=== PATIENT | male | born 1940 | race Caucasian/White ===

== ENCOUNTER → 2023-10-13 08:54 | Day surgery (SDC) | payer OTHER, SELFPAY ==
[2023-10-13 09:48] VITALS: BMI 25.9
[2023-10-13] MEDS: ELIQUIS 5 MG PO (11:56)
--- NOTE | 2023-10-13 12:14 | ITS.CL.CARDI ---
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
Cardioversion
Procedure Report:
Procedure: LOLA-guided electrical cardioversion
Pre-operative diagnosis: Persistent atrial fibrillation
Post-operative diagnosis: Persistent atrial fibrillation status post DC cardioversion to sinus rhythm
Anesthesia: MAC
Attending Physician: Giovany Byrd MD
Procedure Description: The patient was brought to the electrophysiology laboratory in the fasting state. Informed consent was obtained from the patient prior to the start of the procedure. Adherence to anticoagulation was confirmed. Electrodes were
placed on the patient and connected to an external defibrillator. Monitoring of blood pressure, ECG tracings, and pulse oximetry was initiated. The pads were applied to the patient in the anterior and posterior positions. The patient was sedated by
the anesthesiologist. A LOLA (reported separately) was performed prior to the cardioversion. No left atrial or left atrial appendage thrombus was seen. After the LOLA probe was removed, 200 joule and subsequent 360 joule biphasic synchronized shocks
delivered to the patient under MAC anesthesia. Sinus rhythm was successfully restored. The patient recovered uneventfully from MAC anesthesia. There were no immediate post-procedure complications. The patient left the lab in good condition. The
attending physician was present throughout the entire procedure.
Impression: Successful LOLA-guided direct current cardioversion with church of sinus rhythm after 200 joule and subsequent 360 joule biphasic synchronized shock.
== END ==
LOC: CATH 08:54
PROVIDERS: ATTENDING PHYSICIAN Internal Medicine Cardiovascular Disease; FAMILY PHYSICIAN Family Medicine; OTHER PHYSICIAN Internal Medicine Cardiovascular Disease
DX: I48.19 Other persistent atrial fibrillation (principal); I08.3 Combined rheumatic disorders of mitral, aortic and tricuspid valves; I48.92 Unspecified atrial flutter; I47.19 Other supraventricular tachycardia; I25.10 Atherosclerotic heart disease of native coronary artery without angina pectoris; I11.0 Hypertensive heart disease with heart failure; I50.22 Chronic systolic (congestive) heart failure; E78.5 Hyperlipidemia, unspecified; K21.9 Gastro-esophageal reflux disease without esophagitis; Z85.46 Personal history of malignant neoplasm of prostate; Z87.891 Personal history of nicotine dependence; Z79.01 Long term (current) use of anticoagulants
CPT/HCPCS: 93312; 93320; 93325; 92960; 93005

== ENCOUNTER 2023-10-18 15:10 | Emergency (ER) | payer OTHER, SELFPAY ==
[2023-10-18] VITALS (10 sets, daily range): BP systolic 89–125; BP diastolic 63–89; PULSE 85–101; BMI 25.5
--- NOTE | 2023-10-18 15:32 | EDRN ---
Yarely RAMIREZ in room w/ pt at this time.
--- NOTE | 2023-10-18 15:43 | ED.GENMED ---
History of Present Illness
General
Chief Complaint: Breathing Problem
Source: patient
Exam Limitations: none
Time Seen by Provider: 10/18/23 15:29
Travel History
Have you had any contact with someone who has COVID-19?: No
Do you have any symptoms of coronavirus? Fever > 100 degrees, chills, cough, shortness of breath, sore throat, loss of taste or smell, muscle aches, or headache?: No
History of Present Illness
History of Present Illness:
82-year-old male presents for evaluation of shortness of breath and lightheadedness without associated chest pain. He had a LOLA cardioversion performed last week for persistent atrial fibrillation. He is anticoagulated. He states he is having
trouble walking around the house because of the shortness of breath. Denies any weight gain or leg swelling. He feels as though he may be in atrial fibrillation. No fever. No cough. No other complaints at this time
Past History
Past History
ED Past Medical History: Arrthythmia, CAD, Cancer, CHF, HTN and Other (Cardiac amyloidosis)
ED Past Surgical History: Appendectomy, Bowel resection (Bowel resection with colostomy 2017 due to Diverticulitis) and Orthopedic (L knee replacement)
Social History
Tobacco: Former smoker
Alcohol: None
Drug: None
Personal:
Living: with family
Employment: Retired (from [email or web address])
Family History
Family History: Other (n/c)
Phy Exam
Physical Exam
Physical Exam:
General: Well-appearing male no acute respiratory distress
HEENT: Normocephalic atraumatic
Heart: Regular rate and rhythm no murmurs
Lungs: Clear no obvious wheeze or Rales
Abdomen is soft nontender colostomy noted normal bowel sounds none
Extremities: No cyanosis or edema
Skin: Warm no rash
Scores
Heart Failure Risk
Heart Failure Risk Score: Not Applicable
Course
Orders/Labs/Results
Orders:
Orders
10/18/23 15:16
Electrocardiogram (*1) Urgent
Reason for Study: Atrial Fibrillation
EKG- Treatment ONCE
10/18/23 15:40
CR Chest - 2 Views Urgent
Comment:
Reason For Exam: sob
10/18/23 15:59
Basic Metabolic Panel Urgent
Complete Blood Count/With Diff Urgent
NT-proBNP Urgent
Troponin I Urgent
10/18/23 16:02
Orthostatic VS- Treatment ONCE
10/18/23 18:[address] Non Medication Order As Directed
Physician Order: Please do ambulatory pulse ox/heart rate.
Above order entered?: Yes
Abnormal Lab Results
10/18/23
15:59
RBC 4.52 L 10^6/uL
(4.70-6.10)
Hgb 10.3 L g/dL
(13.0-18.0)
Hct 33.9 L %
(39.0-52.0)
MCV 75.0 L fL
(80.0-94.0)
MCH 22.8 L pg
(27.0-31.0)
MCHC 30.4 L g/dL
(33.0-37.0)
RDW 19.3 H %
(11.5-14.5)
Absolute Lymphs (auto) 1.0 L 10^3/uL
(1.2-3.4)
Lymphocytes % 17.6 L %
(20.5-51.1)
Chloride 108 H mmol/L
(98-107)
BUN 22 H mg/dl
(9-20)
Glucose 122 H mg/dl
(70-99)
Troponin I 0.047 H* ng/ml
10/18/23 15:59
10/18/23 15:59
Vital Signs
Initial and Last Documented VS:
Initial Vital Signs
Temp Pulse Resp BP Pulse Ox
98.2 F 96 18 101/66 98
10/18/23 15:12 10/18/23 15:12 10/18/23 15:12 10/18/23 15:12 10/18/23 15:12
Last Documented Vital Signs
Temp Pulse Resp BP Pulse Ox
98.2 F 95 16 117/89 96
10/18/23 15:12 10/18/23 19:15 10/18/23 19:15 10/18/23 19:00 10/18/23 19:30
MDM/Problems Addressed
Differential Diagnosis Includes:
Shortness of breath lightheadedness. Question possible arrhythmia anemia electrolyte abnormality versus CHF. I reviewed prior records. He was cardioverted 5 days ago. His ejection fraction on the LOLA was 45 to 50%. Does not appear volume
overloaded. Check for pneumonia on the x-ray. Labs pending
*Critical Care Note
Total Time (30-74mins, 75-104mins- exclusive of procedures): Not Applicable
Update Note
Update Note:
Workup here is stable. Troponin is 0.047. He is typically higher than this. Chest x-ray shows no acute finding. There is chronic disease noted. Patient ambulated throughout the department and vital signs remained stable. Patient's main concern
was that he was in A-fib again however he has been in sinus rhythm his whole time. Patient expresses his desire to go home. 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
ED Attending Note
-
Portions of this chart may have been created with voice recognition software.� Occasional wrong word or��sound alike� substitutions may have occurred due to the inherent limitations of voice recognition software.
Discharge Plan
Departure
Patient Disposition: Home (Routine Discharge)
Date of Disposition: 10/18/23
Time of Disposition: 19:47
Patient with high blood pressure during this ER visit?: No
Discharge Problem:
Acute dyspnea
Instructions: Shortness of Breath (Dyspnea) (DC)
Prescriptions:
No Action
escitalopram oxalate 10 MG tablet
20 mg PO DAILY
dofetilide 250 MCG capsule
250 mcg PO Q12H
lorazepam 0.5 MG tablet
0.5 mg PO BIDPRN PRN (Reason: anxiety)
Vyndamax 61 MG capsule
61 mg PO HS
Eliquis 5 mg Tablet
5 mg PO BID Qty: 60 2RF
pantoprazole 40 mg tablet,delayed release (DR/EC)
40 mg PO DAILY Qty: 30 1RF
Tylenol Extra Strength 500 mg Powder In Packet
500 mg PO HSPRN PRN (Reason: mild pain)
furosemide 20 MG tablet
20 mg PO DAILY Qty: 30 0RF
rosuvastatin 20 mg Tablet
20 mg PO DAILY
cyanocobalamin (vitamin B-12) 1,000 mcg Tablet Extended Release
1,000 mcg PO DAILY
Theragen Tablet
1 tab PO DAILY PRN (Reason: supplement)
cholecalciferol (vitamin D3) 25 mcg (1,000 unit) Tablet,Chewable
25 mcg PO DAILY PRN (Reason: supplement)
melatonin
2 gummy PO HS
Patient Comments:
10/18/2023, pt. unsure of strength.
Referrals:
Henri Kwon MD [Family Provider] -
Activity Restrictions/Additional Instructions:
Ensure plenty of hydration. Continue current medication regimen. Please follow-up closely with your professor of business return if worsening symptoms should arise otherwise
Interventions
Interventions:
*Risk Screen - Suicide Last Done: 10/18/23 15:12
*General Assessment Last Done: 10/18/23 15:12
*Neglect/Abuse Screening Last Done: 10/18/23 15:12
ED- Fall Risk Assessment Last Done: 10/18/23 15:51
*ED COVID-19 Vaccine History Last Done: 10/18/23 15:51
ED- Cardiac Assessment Last Done: 10/18/23 16:03
ED- Pulmonary Assessment Last Done: 10/18/23 16:03
[2023-10-18 16:10] LABS: % Basophils 1.1 % (0-2); % Eosinophils 2.9 % (0-6); % Immature Granulocytes 0.2 % (0-0.5); % Lymphocytes 17.6 % (20.5-51.1); % Monocytes 8.2 % (1.7-9.3); Absolute Basophils 0.1 10^3/uL (0-0.2); Absolute Eosinophils 0.2 10^3/uL (0-0.7); Absolute Monocytes 0.5 10^3/uL (0.1-0.6); Absolute Neutrophils 3.9 10^3/uL (1.4-6.5); Hematocrit 33.9 % (39.0-52.0); Hemoglobin 10.3 g/dL (13.0-18.0); Mean Corp Hgb Conc. 30.4 g/dL (33.0-37.0); Mean Corpuscular Hgb 22.8 pg (27.0-31.0); Nucleated Red Blood Cells % 0 % (-); Platelet Count 275 10^3/uL (130-400); Red Blood Cell Count 4.52 10^6/uL (4.70-6.10); Red Cell Dist. Width 19.3 % (11.5-14.5); White Blood Cell Count 5.6 10^3/uL (4.8-10.8)
[2023-10-18 16:42] LABS: Blood Urea Nitrogen 22 mg/dl (9-20); Calcium 9.9 mg/dl (8.4-10.2); Carbon Dioxide 25 mmol/L (22-30); Chloride 108 mmol/L (98-107); Estimated Creatinine Clearance 56 ml/min; Glucose 122 mg/dl (70-99); Sodium 139 mmol/L (135-145); eGFR > 60.00
[2023-10-18 16:44] LABS: NT-proBNP 1430 pg/ml; Troponin I 0.047 ng/ml
--- NOTE | 2023-10-18 19:34 | EDRN ---
Pt ambulated with handheld assist around nurses station without difficulty. Pt SpO2 stayed 95% RA and above. HR between 92-95. Pt states he feels more SOB than in the past but states he is capable of walking further. Denied dizziness.
== END 2023-10-18 19:57 | disposition home or self-care (01) ==
LOC: EMR 15:10
PROVIDERS: Physician Assistant; EMERGENCY PHYSICIAN Emergency Medicine; FAMILY PHYSICIAN Family Medicine
DX: R06.00 Dyspnea, unspecified (principal); I48.19 Other persistent atrial fibrillation; Z87.891 Personal history of nicotine dependence
CPT/HCPCS: 99285; 71046; 80048; 83880; 84484; 85025; 93005

== ENCOUNTER 2023-10-28 08:06 | Day surgery (SDC) | payer OTHER, SELFPAY ==
[2023-10-28] VITALS (31 sets, daily range): BP systolic 86–156; BP diastolic 55–134; BMI 25.3
[2023-10-28 13:05] LABS: ACT-LR - POC 289 Seconds (116-155)
--- NOTE | 2023-10-28 13:49 | ITS.CL.ABL ---
Motor Setter - Ablation
Ablation
Procedure Report:
AFIB ablation:
Mr. Sukh Gil is a very pleasant 82 yr old gentleman with h/o persistent AF s/p failed Tikosyn, AF ablation on 08/12/2023 that included pulmonary veins isolation, roof line and posterior wall isolation ablation, mitral flutter with anterior line,
biatrial flutter, AT from SVC and AT from QUINCY and roof junction has gone into recurrent atrial tachycardia / flutter and presented today to the EP lab for atrial tachycardia/ flutter ablation.
Date of Procedure:
10/28/2023
Indications:
Recurrent atrial flutter / Atrial tachycardia
Pre-Operative Diagnosis:
Atrial flutter / Atrial tachycardia
Post-Operative Diagnosis:
Atrial flutter / Atrial tachycardia
Procedure Performed:
Typical atrial flutter ablation with CTI line formation
Rohit terminalis lateral wall right atrial flutter ablation.
Focal atrial tachycardia at the floor of the LA
Atypical atrial flutter around the left atrial appendage.
Focal atrial tachycardia at the roof of the QUINCY
Mitral flutter with anterior line formation
Trans-septal uncture
Intracardiac ECHO cardiography
Performing Physician:
Aide Meléndez MD
Assistants:
EP staff
Anesthesia:
See anesthesia records
Detailed Description of the Procedure:
Written informed consent was obtained from the patient after a full explanation of the risks and benefits of the procedure including the risks of sedation and anesthesia.
The patient was brought to the electrophysiology laboratory in stable condition in fasting state. Continuous electrocardiographic and hemodynamic monitoring was initiated.
The initial rhythm was atrial flutter.
Time out:
The procedure site was meticulously prepared with surgical scrub and allowed to dry with no pooling. Sterile draping was applied to cover the procedure site. The image intensifier was draped with sterile bag and positioned over the patient.
Prior to the start of the procedure a surgical pause was performed with in agreement from anesthesia, EP staff with double identifier and explanation of the procedure, plan and site of the procedure stated with allergies and medications and
pertinent labs reviewed.
After infusion of local anesthetic, vascular access was obtained under ultrasound guidance and sheaths were placed over guide wire as detailed below.
Sheaths:
��������������� Agilis sheath in right femoral vein upgraded from 8Fr in right femoral vein
��������������� 9Fr in right femoral vein
��������������� 7fr in right femoral vein
Catheters:
��������������� ������������� 3.5mm force sensing irrigated Thermocool STSF DF Bidirectional - at locations of HRA, LA, LV and CS.
��������������� ������������� Penta-ray mapping catheter � at locations of RA, LA
��������������� ������������� ICE catheter - at locations of RA, SVC, and RV.
��������������� ������������� Decapolar Bard catheter � at locations of RA and CS
A 7000 units of heparin was given
Electroanatomic mapping of the right atrium:
A J-tipped guidewire was advanced through the 8-Jordanian sheath in the right femoral vein into the superior vena cava under fluoroscopic and ICE guidance. The 8-Jordanian sheath was exchanged for an Agilis sheath which was advanced into the superior vena
cava.
Using the Pentaray catheter advanced through Agilis sheath into the right atrium, an electroanatomic map (EAM) of the right atrium was created using [employer] Carto mapping system.
The tachycardia was bump terminated but was easily inducible.
Ablation # 1: Typical Atrial Flutter Ablation:
Radiofrequency ablation was performed using a 3.5mm, open irrigation, force-sensing bidirectional ablation catheter (Thermocool STSF) in the cavotricuspid isthmus from the tricuspid annulus to the IVC ridge. All the ablation lesions were guided by
the [facility] SURPOINT module with the CTI lesions were limited to 40-45 [place]ginbotham for SURPOINT lesion index goal of 450.
��������������� -Bidirectional block was confirmed across the CTI line with differential pacing.
��������������� -Double potentials were spaced greater than 158 msec apart.
��������������� -The conduction time across the CTI line from proximal CS pacing was 231 msec.
��������������� -EAM of the right atrium was obtained with coronary sinus pacing and showed a line of block at the CTI.
��������������� -The time interval just lateral to the ablation lesions was 231 msec and the lateral wall was 112 msec
��������������� - All these maneuvers confirmed the block at the CTI line.
- Post ablation HV interval was unchanged at 45msec
Ablation # 2:Lateral wall right atrial flutter:
Patient was again induced and easily inducible tachycardia noted.� The tachycardia was 321 ms and appears to be right atrial in origin.
The entrainment from CTI was done but it was outt.� Floor of the right atrium was also out of the tachycardia.� The SVC and Rohit junction was close to the circuit.
A series of ablations were placed at the rohit terminalis connecting it to SVC and IVC. The tachycardia slowed and terminated into sinus rhythm.
Another attempt of induction resulted in another tachycardia which appears to be coming from the left atrium based on mapping, and CS activation. Decision was made to proceed with transseptal puncture and mapped left atrium
Intracardiac ECHO:
An 8-Jordanian AcuNav intracardiac ECHO (ICE) probe was advanced through the 9-Jordanian sheath in the right femoral vein into the right atrium under fluoroscopic and ICE ultrasound image guidance and a baseline ECHO study was performed. The left atrial
size was dilated. There was trace tricuspid regurgitation. There was mild mitral regurgitation. The aortic valve was grossly normal. There was normal left ventricular size and function. There is trace pericardial effusion. All the four veins were
identified and has good flow identified. There was dense spontaneous contrast noted at the mouth of the QUINCY. No definite clot seen.�
During the procedure, ICE was used for monitoring of complications, guidance of trans-septal puncture, monitor the catheter position and tracking ablation lesions. No change in the pericardial space noted throughout the procedure.
Trans-septal Puncture:
Heparin was initiated and infused to maintain appropriate ACT. A J-tipped guidewire was advanced through the 8-Jordanian sheath in the right femoral vein into the superior vena cava under fluoroscopic and ICE guidance. The 8-Jordanian sheath was exchanged
for an Agilis sheath which was advanced into the superior vena cava. A BRK transseptal needle was advanced until the tip was slightly behind the tip of the dilator inside the Agilis sheath. The apparatus was withdrawn until it was in contact with
the fossa ovalis. The position was adjusted based on fluoroscopy and ultrasound images from ICE. Under fluoroscopic, hemodynamic and ICE ultrasound guidance, left atrium was cannulated by advancing the needle. Once atrial septum was cannulated, the
needle was pulled back and a BMW guide wire was advanced through the needle into the left atrium. The guide wire was advanced into the left superior pulmonary vein. Both the sheath and the dilator was advanced into the left atrium. The dilator with
the needle was withdrawn. Blood was aspirated from the Agilis sheath and arterial blood confirmed. The sheath was flushed. Saline injection noted into the left atrium on ICE. The mapping catheter was advanced in the Agilis sheath into the left
pulmonary vein. Left atrial pressure was measured and elevated V wave noted likely showing at least moderate mitral regurgitation.
3D Electroanatomic Mapping:
Using the Pentaray catheter advanced through Agilis sheath into the left atrium, an electroanatomic map (EAM) of the left atrium was created using Carto mapping system. The map was used for localization of catheter position and tacking of ablation
lesions.
The EAM of the left atrium showed 4 pulmonary veins with all 4 veins electrically isolated from the body the LA. The left atrial posterior wall was also completely silent consistent with her previous ablation. No sign of reconnections noted.
It showed extensive scar on the posterior and anterior wall of the LA with only occasional area of atrial electrical activity. The LA was dilated in size.
Ablation #3: Left atrial floor focal tachycardia ablation:
Using the Carto finder software, the tachycardia was mapped. This tachycardia was appears to be focal tachycardia coming from the floor of the left atrium. Using ablation catheter a series of ablations were placed at the origin of the tachycardia.
Tachycardia terminated and changed into a different tachycardia which was mapped.
Ablation #4: Atypical left atrial flutter involving the left atrial appendage:
Mapping of this tachycardia shows the atypical flutter revolving around the left atrial appendage using the ligament of Jan. The critical isthmus of this appendage appears to be at the fourth of the left atrium at the junction of left atrial
appendage and roof along with left superior pulmonary vein.
A few ablation lesions at that location slowed cycle length and terminated the tachycardia into normal sinus rhythm.
Ablation #5 focal atrial tachycardia at the roof of the QUINCY
CS was paced and the tachycardia was induced. Tachycardia was 521 ms cycle length and was mapped again. It was coming from left atrium and the origin was at the focal point in the roof of left atrial appendage. The location of the origin was
identified inside the left atrial appendage and series of ablations were placed that terminated the tachycardia.
Ablation #6: Mitral flutter with anterior line formation
Further attempt of induction resulted in generation of slow atrial flutter at 610 ms cycle length. This tachycardia was again mapped and appears to be involving the anterior wall of the left atrium likely involving both atria. The series of
ablations were placed connecting the ablated left atrial appendage roof to the left superior pulmonary vein that terminated the tachycardia. Further ablations were placed to create a block of lying on the anterior wall.
The AV nayely functions are deemed within normal range. �The HV was normal with AV conduction
All PVI were rechecked at the end of the case and remained isolated with dissociated and local capture with pacing. Entrance and exit block were demonstrated.
Procedure End
ICE study was done again that showed no epicardial accumulation. No complications noted.
Following the completion of the EP study, catheters were removed. Protamine 40 mg was given at the end of the procedure and ACT was checked repeatedly. The sheaths were removed and hemostasis achieved with VASCADE and manual compression after
acceptable ACT is achieved.
Left atrial Pressure:
Pre-Procedure: Mean LA pressure was 23mmHg
Post-Procedure: Mean LA pressure was 20mmHg
Pre-Procedure: Mean RA pressure was 10mmHg
Estimated Blood loss:
<10 cc
Specimens Removed:
None.
Implants / Devices:
None
Urine output:
None
Packs / Drains/ Tubes:
None
Instrument / Sponge Count Correct:
Yes
Complications of the Procedure:
None
Condition of Patient at Time of Transfer:
Hemodynamically stable with no neurological or vascular compromise.
Summary:
Successful Typical atrial flutter ablation with CTI line formation, Rohit terminalis lateral wall right atrial flutter ablation, Focal atrial tachycardia at the floor of the LA, Atypical atrial flutter around the left atrial appendage, Focal atrial
tachycardia at the roof of the QUINCY, Mitral flutter with anterior line formation
[2023-10-28] MEDS: LASIX IV (13:54)
--- NOTE | 2023-10-28 14:22 | PTCARENOTE ---
Pt due for Lasix IV now. Pt's BP 80's-90's / 50's-60's. Virgie Chavez HEALTH CARE ATTORNEY made aware and states ok to hold until pt's blood pressure comes up. Pt's lungs clear. Pt asymptomatic. Will continue to monitor.
[2023-10-28] MEDS: LASIX 40 MG IV (14:37)
[2023-10-28 15:45] LABS: ACT-LR - POC > 397 Seconds (116-155)
--- NOTE | 2023-10-28 16:26 | PTCARENOTE ---
Received patient from EP lab at 1545 after PCI. Dressing right groin is dry and intact with a strong pedal pulse. Received IV lasix post op, BP 90's/60's, asymptomatic and resting in bed with HOB elevated 30 degrees. Call thomson in reach, at the
bedside.
--- NOTE | 2023-10-28 16:29 | CM ---
Reviewed chart. Met with Mr. Luz to review discharge plans. He states prior to admission he resides with with his spouse in a two story home. He states he has a elevator to get to the second floor where his bedroom/full bathroom is located. He
states prior to admission he ambulates with a rolling walker. He states he has a prescription plan and uses [facility]. The discharge plan is to return home with his spouse when medically stable.
--- NOTE | 2023-10-28 16:33 | CM ---
Reviewed chart. Met with Mr. Luz to review discharge plans. He states prior to admission he resides with his spouse in a two story home. He states he has a elevator to get to bedroom/full bathroom. He states prior to admission he ambulates with
a rolling walker. He states he has a rolling walker at home and no other DME. He states he has a prescription plan and uses [facility]. The discharge plan is to return home with his spouse when medically stable.
--- NOTE | 2023-10-28 16:55 | PTCARENOTE ---
HR irregular, telemetry showing PAF. Dressing right groin is dry and intact, HOB elevated, monitoring VS. Robert Chavez TALEND ETL DEVELOPER of telemetry.
[2023-10-28] MEDS: CRESTOR 20 MG PO (17:52)
[2023-10-28] MEDS: ELIQUIS 5 MG PO (20:01)
[2023-10-28] MEDS: TIKOSYN 250 MCG PO (20:01)
--- NOTE | 2023-10-28 23:27 | PTCARENOTE ---
Assumed care. Patient assisted to the chair, lightheadedness with standing. KERWIN 102/80. Right groin site CDI, left lower abdominal colostomy, no stool in bag. SA with frequent PAC's. HR irregular. Call thomson in reach
[2023-10-28] MEDS: ATIVAN 0.5 MG PO (23:58)
[2023-10-29 03:23] VITALS: BP 103/71
[2023-10-29 04:09] LABS: Hematocrit 34.9 % (39.0-52.0); Hemoglobin 10.8 g/dL (13.0-18.0); Mean Corp Hgb Conc. 30.9 g/dL (33.0-37.0); Mean Corpuscular Hgb 22.9 pg (27.0-31.0); Mean Corpuscular Volume 74.1 fL (80.0-94.0); Mean Platelet Volume 11.2 fL (7.4-10.4); Platelet Count 280 10^3/uL (130-400); Red Blood Cell Count 4.71 10^6/uL (4.70-6.10); Red Cell Dist. Width 19.7 % (11.5-14.5); White Blood Cell Count 6.3 10^3/uL (4.8-10.8)
[2023-10-29 04:56] LABS: Blood Urea Nitrogen 25 mg/dl (9-20); Calcium 10.1 mg/dl (8.4-10.2); Carbon Dioxide 25 mmol/L (22-30); Chloride 104 mmol/L (98-107); Estimated Creatinine Clearance 56 ml/min; Glucose 136 mg/dl (70-99); Magnesium 1.8 mg/dl (1.6-2.3); Potassium 4.6 mmol/L (3.5-5.1); Sodium 140 mmol/L (135-145); eGFR > 60.00
[2023-10-29 06:59] VITALS: BP 125/81
[2023-10-29] MEDS: LEXAPRO 20 MG PO (08:40)
[2023-10-29] MEDS: PROTONIX 40 MG PO (08:40)
[2023-10-29] MEDS: ELIQUIS 5 MG PO (08:40)
[2023-10-29] MEDS: TIKOSYN 250 MCG PO (08:40)
--- NOTE | 2023-10-29 08:50 | W.PN.CARDCBS ---
Addendum entered and electronically signed by Brittani Casper MD 10/29/23 10:03:
I saw and examined the patient.
The SECOND VP HR ASSESSMENT's note was reviewed and I agree with the note.
Comment: He is feeling well. His lungs are cta, rrr no m/r/g, trace edema. He will follow up in the office, will need to allow for some arrhythmia in the next 3 months. Also traditional GDMT is not indiciated given cardiac amyloid.
Original Note:
Today's Communication / Plan
-
post redo ablation
stable for d/c home
Impression / Plan
-
PCP: Henri Kwon MD
CDY: Brittani Cortes MD
Mr. Sukh Gil is a very pleasant 82 yr old gentleman with h/o persistent AF s/p failed Tikosyn, AF ablation on 08/12/2023 that included pulmonary veins isolation, roof line and posterior wall isolation ablation, mitral flutter with anterior line,
biatrial flutter, AT from SVC and AT from QUINCY and roof junction has gone into recurrent atrial tachycardia / flutter and presented today to the EP lab for atrial tachycardia/ flutter ablation.
Impression/Plan:
Recurrent symptomatic Atrial tachycardia - recent ablation 08/12/2023, redo ablation 10/28/23 (see below for details)
tele currently SR but had Afib o/n. OAC Eliquis, continue dofetilide 250mcg bid, PPI daily 2 weeks
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
continue lasix, other meds limited by hypotension
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
HLD
BPH
GERD
CAD/PCI 2020
Prostate CA
OA/LDD
Perforated divertic post colostomy 2016
Prior QUINCY thrombus 2021
Depression
10/28/2023
Procedure Performed:
Typical atrial flutter ablation with CTI line formation
Elissa terminalis lateral wall right atrial flutter ablation.
Focal atrial tachycardia at the floor of the LA
Atypical atrial flutter around the left atrial appendage.
Focal atrial tachycardia at the roof of the QUINCY
Mitral flutter with anterior line formation
Progress Note - Information Security
Subjective
Date of Service: October 29, 2023
no cp, sob
Objective
Labs:
10/29/23 03:38
10/29/23 03:38
Labs
Hgb 10.8 g/dL (13.0-18.0) L 10/29/23 03:38
Hct 34.9 % (39.0-52.0) L 10/29/23 03:38
Plt Count 280 10^3/uL (130-400) 10/29/23 03:38
Sodium 140 mmol/L (135-145) 10/29/23 03:38
Potassium 4.6 mmol/L (3.5-5.1) 10/29/23 03:38
BUN 25 mg/dl (9-20) H 10/29/23 03:38
Creatinine 1.0 mg/dL (0.7-1.3) 10/29/23 03:38
Glucose 136 mg/dl (70-99) H 10/29/23 03:38
Vital Signs and I&O:
Vital Signs
Temp Pulse Resp BP Pulse Ox
97.6 F 90 16 125/81 97
10/29/23 06:57 10/29/23 07:45 10/29/23 06:57 10/29/23 06:59 10/29/23 08:15
Vital Signs
Temp Pulse Resp BP Pulse Ox
97.6 F 90 16 125/81 97
10/29/23 06:57 10/29/23 07:45 10/29/23 06:57 10/29/23 06:59 10/29/23 08:15
Intake & Output
10/27/23 10/28/23 10/29/23 10/30/23
06:59 06:59 06:59 06:59
Intake Total 2039
Output Total 900 / 900
Balance 1140 / 1140
Physical Exam
Physical Exam
NAD, AOX3
S1, S2, RRR
CTAB, non labored
SNTND bsx4
R fem site c/d/i no HT, soft
[2023-10-29] MEDS: PREVNAR 20 0.5 ML IM (10:07)
[2023-10-29 11:42] VITALS: BP 108/80
--- NOTE | 2023-10-29 11:46 | W.DS.TRANS ---
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
-
Discharge Instructions:
Sleep Apnea Risk Intermediate
Discharge Diagnosis/Procedures Atrial tachycardia post ablation
Diet Low Cholesterol,2 Gram Sodium
Driving Restrictions No driving for 24 hours
Instructions:
Stand-Alone Forms: DC Instructions- Cath/EP Lab
Changes to Home Medications: No
Discharge Medications:
DC Medications w/original date entered in zulily
escitalopram oxalate 10 mg tablet 20 mg PO DAILY Mental Health/Anxiety 08/02/17
dofetilide 250 mcg capsule 250 mcg PO Q12H Heart disease/condition 01/23/20
lorazepam 0.5 mg tablet 0.5 mg PO BIDPRN PRN anxiety 01/23/20
tafamidis 61 mg capsule (Vyndamax) 61 mg PO QPM Heart disease/condition 01/23/20
apixaban 5 mg tablet (Eliquis) 5 mg PO BID atrial thrombus #60 tabs 05/29/22
pantoprazole 40 mg tablet,delayed release 40 mg PO DAILY Reflux disease #30 tabs 05/29/22
acetaminophen 500 mg oral powder packet (Tylenol Extra Strength) 500 mg PO HSPRN PRN mild pain 06/18/23
furosemide 20 mg tablet 20 mg PO DAILY Heart Failure #30 tabs 07/21/23
rosuvastatin 20 mg tablet 20 mg PO DAILY 08/12/23
cholecalciferol (vitamin D3) 25 mcg (1,000 unit) chewable tablet 25 mcg PO DAILY PRN supplement 10/18/23
cyanocobalamin (vitamin B-12) 1,000 mcg tablet,extended release 1,000 mcg PO DAILY 10/18/23
melatonin 2 gummy PO HS 10/18/23
multivitamin with minerals-folic acid 200 mcg chewable tablet (Multivitamin Gummies) 1 tab PO QPM 10/28/23
Home Medication Changes
Pending Results: No
--- NOTE | 2023-10-29 13:42 | PTCARENOTE ---
Pt seen by Quita Chavez NP. Pt given prevnar vaccine. Telemetry and IV device removed. Discharge instructions reviewed with pt extensively ( no glasses at hospital) regarding medications and their possible side effects (no new meds), activity and
driving restrictions, wound care, reproting cares adn concerns and follow up appt's. Good understanding taught back to RN. Pt escorted out via wheelchair and pt discharged to home.
== END 2023-10-29 13:46 | disposition home or self-care (01) ==
LOC: CATH 08:06
PROVIDERS: Nurse Practitioner Adult Health; ATTENDING PHYSICIAN Internal Medicine Cardiovascular Disease; FAMILY PHYSICIAN Family Medicine; OTHER PHYSICIAN Internal Medicine Cardiovascular Disease
DX: I48.3 Typical atrial flutter (principal); I48.4 Atypical atrial flutter; I47.19 Other supraventricular tachycardia; Z79.01 Long term (current) use of anticoagulants; E78.5 Hyperlipidemia, unspecified; I50.9 Heart failure, unspecified; I11.0 Hypertensive heart disease with heart failure; E85.82 Wild-type transthyretin-related (ATTR) amyloidosis; N40.0 Benign prostatic hyperplasia without lower urinary tract symptoms; K21.9 Gastro-esophageal reflux disease without esophagitis; I25.10 Atherosclerotic heart disease of native coronary artery without angina pectoris; Z95.5 Presence of coronary angioplasty implant and graft; C61 Malignant neoplasm of prostate; M19.90 Unspecified osteoarthritis, unspecified site; F32.A Depression, unspecified
CPT/HCPCS: 93655; C1769; C1894; C1730; C1732; C1766; C1892; C1759; 76937; 80048; 83735; 85027; 85347; 86850; 86900; 86901; 90677; 93005; 93462; 93653; G0009

== ENCOUNTER → 2023-11-09 15:52 | Outpatient (REF) | payer OTHER, SELFPAY | LOC: DHCBC HW 15:52 | PROVIDERS: ATTENDING PHYSICIAN Internal Medicine Cardiovascular Disease; FAMILY PHYSICIAN Family Medicine | DX: I48.0 Paroxysmal atrial fibrillation (principal); R06.02 Shortness of breath; R07.89 Other chest pain | CPT/HCPCS: 93306 ==

== ENCOUNTER → 2023-11-10 11:24 | Outpatient (REF) | payer OTHER, SELFPAY | LOC: RAD 11:24 | PROVIDERS: ATTENDING PHYSICIAN Internal Medicine Cardiovascular Disease; FAMILY PHYSICIAN Family Medicine | DX: I48.0 Paroxysmal atrial fibrillation (principal); R06.02 Shortness of breath; R07.89 Other chest pain | CPT/HCPCS: 71046 ==

== ENCOUNTER 2023-12-21 13:38 | Outpatient (RCR) | payer OTHER, SELFPAY ==
[2023-12-13] MEDS: INJECTAFER 265 MG IV (13:44)
[2023-12-13 13:47] VITALS: BP 121/61
[2023-12-21 13:50] VITALS: BP 116/72
[2023-12-21] MEDS: INJECTAFER 265 MG IV (14:03)
[2023-12-21 14:45] VITALS: BP 112/71
== END 2023-12-22 09:03 | disposition home or self-care (01) ==
LOC: OID 13:38
PROVIDERS: ATTENDING PHYSICIAN Family Medicine
DX: D50.9 Iron deficiency anemia, unspecified (principal); I43 Cardiomyopathy in diseases classified elsewhere; D68.69 Other thrombophilia; I48.19 Other persistent atrial fibrillation; E85.82 Wild-type transthyretin-related (ATTR) amyloidosis; Z79.01 Long term (current) use of anticoagulants
CPT/HCPCS: 96365; J1439

== ENCOUNTER 2024-02-28 13:48 | Emergency (ER) | payer OTHER, SELFPAY ==
[2024-02-28 13:55] VITALS: BP 125/66
[2024-02-28 14:19] LABS: % Basophils 0.7 % (0-2); % Eosinophils 2.5 % (0-6); % Immature Granulocytes 0.4 % (0-0.5); % Lymphocytes 19.1 % (20.5-51.1); % Monocytes 7.5 % (1.7-9.3); % Neutrophils 69.8 % (42.2-75.2); Absolute Eosinophils 0.1 10^3/uL (0-0.7); Absolute Lymphocytes 1.1 10^3/uL (1.2-3.4); Absolute Monocytes 0.4 10^3/uL (0.1-0.6); Hematocrit 35.1 % (39.0-52.0); Hemoglobin 11.7 g/dL (13.0-18.0); Mean Corp Hgb Conc. 33.3 g/dL (33.0-37.0); Mean Corpuscular Volume 80.9 fL (80.0-94.0); Nucleated Red Blood Cells % 0 % (-); Platelet Count 240 10^3/uL (130-400); Red Blood Cell Count 4.34 10^6/uL (4.70-6.10); Red Cell Dist. Width 17.8 % (11.5-14.5); White Blood Cell Count 5.7 10^3/uL (4.8-10.8)
[2024-02-28 14:35] LABS: ALT (SGPT) 11 U/L (0-50); AST (SGOT) 17 U/L (17-59); Albumin 4.1 g/dl (3.5-5.0); Alkaline Phosphatase 78 U/L (38-126); Blood Urea Nitrogen 14 mg/dl (9-20); Calcium 9.9 mg/dl (8.4-10.2); Carbon Dioxide 27 mmol/L (22-30); Chloride 104 mmol/L (98-107); Glucose 104 mg/dl (70-99); Potassium 3.8 mmol/L (3.5-5.1); Sodium 138 mmol/L (135-145); Total Bilirubin 0.7 mg/dl (0.2-1.3); Total Protein 6.4 g/dl (6.3-8.2); eGFR > 60.00
--- NOTE | 2024-02-28 16:52 | ED.GENMED ---
History of Present Illness
<Grace Jones PA-C - Last Filed: 02/29/24 00:16>
General
Chief Complaint: Breathing Problem
Source: patient and spouse
Exam Limitations: none
Time Seen by Provider: 02/28/24 16:38
Nursing documentation reviewed up to this point in time: agreed with
History of Present Illness
History of Present Illness:
Patient is an 83-year-old male with history atrial fibrillation on Eliquis, amyloidosis, CHF presenting to the emergency department for evaluation of worsening shortness of breath. Patient states that he has a baseline level of shortness of breath
but over the past few days it has become progressively worse. He endorses a constant sensation of dyspnea worse with exertion. He does also endorse some pressure in his left side of his chest. Patient endorses a mild lightheaded sensation as
well. Patient denies any fever, chills, cough, weight changes, or lower extremity swelling.
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
Past History
<Grace Jones PA-C - Last Filed: 02/29/24 00:16>
Past History
ED Past Medical History: Arrthythmia, CAD, Cancer, CHF, HTN and Other (Cardiac amyloidosis)
ED Past Surgical History: Appendectomy, Bowel resection (Bowel resection with colostomy 2017 due to Diverticulitis) and Orthopedic (L knee replacement)
Social History
Tobacco: Former smoker
Alcohol: None
Drug: None
Personal:
Living: with family
Employment: Retired (from [employer])
Family History
Family History: Other (n/c)
Review of Systems
<Grace Jones PA-C - Last Filed: 02/29/24 00:16>
Review of Systems
Allergies reviewed?: Yes
All Other Systems: ROS reviewed and negative except as documented in HPI and ROS
Phy Exam
<Grace Jones PA-C - Last Filed: 02/29/24 00:16>
Physical Exam
Physical Exam:
Vitals: Mildly bradycardic, otherwise vital signs are stable. Afebrile. Oxygen saturation 98% on room air
General: Patient is well appearing, no acute distress
Skin: Warm and dry, no rashes or lesions
Head: Normocephalic, atraumatic
Eyes: Sclera nonicteric. EOMs intact. No nystagmus.
Throat: Protecting airway
Neck: Normal ROM, no cervical spine tenderness, no meningismus. No JVD
Cardiac: Mildly bradycardic, normal rhythm, no murmurs.
Pulm: Normal respiratory effort, no wheezes, rales, rhonchi heard on exam. No apparent respiratory distress.
Abdomen: Abdomen soft. No abdominal tenderness. Ostomy bag in left lower abdomen in place.
Extremities: No evidence of cyanosis or edema. Great distal pulses
Neuro: AAOx3. CN II-XII intact. No focal neurologic deficits.
Psychiatric: Normal affect.
Scores
<Grace Jones PA-C - Last Filed: 02/29/24 00:16>
Heart Failure Risk
Heart Failure Risk Score: Yes
History of Stroke or TIA: No
History of intubation for respiratory distress: No
Heart rate on ED arrival >/= 110: No
SaO2 <90% on arrival on room air: No
HR >/=110 during 3min walk test (or too ill to perform test): No
ECG has acute ischemic changes: No
Urea >/=12mmol/L (BUN 33.6mg/dL): No
Serum CO2>/=35mmol/L: No
Troponin I or T elevated to DC Level (0.4mg/dL): No
NT-proBNP >/=5,000ng/L (5,000pg/ml): No
HF Risk Score: 0
Admission Status: LOW RISK 2.8% Consider discharge to home with f/u visit to PCP/Plate Conditioner
Course
<Grace Jones PA-C - Last Filed: 02/29/24 00:16>
Orders/Labs/Results
Orders:
Orders
02/28/24 14:00
Electrocardiogram (*1) Urgent
Reason for Study: Shortness of Breath
EKG- Treatment ONCE
02/28/24 14:09
CMP [Comprehensive Metabolic Panel] Urgent
Complete Blood Count/With Diff Urgent
02/28/24 16:53
CR Chest - 2 Views Urgent
Comment: hx amyloidosis
Reason For Exam: shortness of breath, chest pressure
02/28/24 17:27
NT-proBNP Urgent
Troponin I Urgent
02/28/24 18:[address] Non Medication Order As Directed
Physician Order: Walking pulse ox
Above order entered?: Yes
Abnormal Lab Results
02/28/24 02/28/24
14:09 17:27
RBC 4.34 L 10^6/uL
(4.70-6.10)
Hgb 11.7 L g/dL
(13.0-18.0)
Hct 35.1 L %
(39.0-52.0)
RDW 17.8 H %
(11.5-14.5)
MPV 11.0 H fL
(7.4-10.4)
Absolute Lymphs (auto) 1.1 L 10^3/uL
(1.2-3.4)
Lymphocytes % 19.1 L %
(20.5-51.1)
Glucose 104 H mg/dl
(70-99)
Troponin I 0.038 H* ng/ml
02/28/24 14:09
08/05/24 14:09
Vital Signs
Initial and Last Documented VS:
Initial Vital Signs
Temp Pulse Resp BP Pulse Ox
98.1 F 54 18 125/66 98
02/28/24 13:55 02/28/24 13:55 02/28/24 13:55 02/28/24 13:55 02/28/24 13:55
Last Documented Vital Signs
Temp Pulse Resp BP Pulse Ox
98.1 F 53 18 147/96 99
02/28/24 13:55 02/28/24 19:00 02/28/24 19:00 02/28/24 19:00 02/28/24 18:45
<Zachery Kamara, DO - Last Filed: 02/28/24 19:16>
Orders/Labs/Results
Orders:
Orders
02/28/24 14:00
Electrocardiogram (*1) Urgent
Reason for Study: Shortness of Breath
EKG- Treatment ONCE
02/28/24 14:09
CMP [Comprehensive Metabolic Panel] Urgent
Complete Blood Count/With Diff Urgent
02/28/24 16:53
CR Chest - 2 Views Urgent
Comment: hx amyloidosis
Reason For Exam: shortness of breath, chest pressure
02/28/24 17:27
NT-proBNP Urgent
Troponin I Urgent
02/28/24 18:[address] Non Medication Order As Directed
Physician Order: Walking pulse ox
Above order entered?: Yes
Abnormal Lab Results
02/28/24 02/28/24
14:09 17:27
RBC 4.34 L 10^6/uL
(4.70-6.10)
Hgb 11.7 L g/dL
(13.0-18.0)
Hct 35.1 L %
(39.0-52.0)
RDW 17.8 H %
(11.5-14.5)
MPV 11.0 H fL
(7.4-10.4)
Absolute Lymphs (auto) 1.1 L 10^3/uL
(1.2-3.4)
Lymphocytes % 19.1 L %
(20.5-51.1)
Glucose 104 H mg/dl
(70-99)
Troponin I 0.038 H* ng/ml
02/28/24 14:09
02/28/24 14:09
Vital Signs
Initial and Last Documented VS:
Initial Vital Signs
Temp Pulse Resp BP Pulse Ox
98.1 F 54 18 125/66 98
02/28/24 13:55 02/28/24 13:55 02/28/24 13:55 02/28/24 13:55 02/28/24 13:55
Last Documented Vital Signs
Temp Pulse Resp BP Pulse Ox
98.1 F 53 18 147/96 99
02/28/24 13:55 02/28/24 19:00 02/28/24 19:00 02/28/24 19:00 02/28/24 18:45
<Grace Jones PA-C - Last Filed: 02/29/24 00:16>
MDM/Problems Addressed
Differential Diagnosis Includes:
Not limited to: Progression of amyloidosis, atrial fibrillation,'s acute CHF exacerbation, pneumonia, pneumothorax,
MDM/Problems Addressed:
83-year-old male with history as documented presenting with progressively worsening dyspnea on exertion over the past few days with a constant left-sided chest pressure ongoing for a few days. No recent changes in weight. No fever, chills, cough.
Patient is mildly bradycardic on arrival, otherwise vital signs are stable. He is afebrile. Physical exam as above. Patient is well-appearing, in no apparent respiratory distress. Heart slightly bradycardic, regular rhythm. Lungs are clear
bilaterally. There are no signs of peripheral edema. Great distal pulses. Labs were initiated which show a mild anemia with hemoglobin of 11.7�which appears stable and chronic. Otherwise no clinically significant abnormalities EKG without any
acute ischemic changes. Troponin mildly elevated at 0.038. This does appear to be actually lower than patient's chronic elevation in troponins. proBNP with mild elevation at 2660. No significant elevation to suggest acute CHF exacerbation.
Chest x-ray reviewed which shows vascularity at top limit of normal mild cardiomegaly. Patient is otherwise stable in no apparent distress in emergency department. We did obtain a walking pulse ox and patient remained oxygen saturation at 96 while
walking.
No indication for admission at this time. Patient is stable. There may be a mild component of CHF although I suspect symptoms most likely related to progressive worsening of patient's amyloidosis. Will instruct patient to double Lasix for the
next few days. He will follow-up with his cardiology and pulmonology in the next few days. Return precautions discussed at length. Stable for discharge. Patient seen with attending physician.
Chronic conditions affecting care:
CHF, atrial fibrillation, amyloidosis
Acute Exacerbation and/or Progression of Chronic Illness:
N/A
<Grace Jones PA-C - Last Filed: 02/29/24 00:16>
*Radiology
Radiology exam reviewed: preliminary read by ED provider and radiology read reviewed
*Pulse Oximetry
Patient hypoxic: no
*EKG
Interpreted by ED Provider?: Yes
EKG Intrepretation Date: 02/28/24
Interpretation: abnormal
Comparison EKG: changes noted
Heart Rate: 54
Rate: bradycardiac
Rhythm: sinus
Hunter: normal axis
Interval: normal interval
QRS Pattern: normal QRS
Ischemia: non-specific ST changes
*Packaging Manager Interpretation
Rate: normal
Interpretation: normal
Heart Rate: 86
*Critical Care Note
Total Time (30-74mins, 75-104mins- exclusive of procedures): Not Applicable
<Grace Jones PA-C - Last Filed: 02/29/24 00:16>
Patient Management
Escalation/DeEscalation of care consider admission/obs:
Admit not indicated.
ED Attending Note
<Grace Jones PA-C - Last Filed: 02/29/24 00:16>
-
Portions of this chart may have been created with voice recognition software.� Occasional wrong word or��sound alike� substitutions may have occurred due to the inherent limitations of voice recognition software.
<Zachery Kamara DO - Last Filed: 02/28/24 19:16>
ED Attending Note
Patient seen and examined by attending physician: Yes
I performed a history and physical exam of patient and discussed management with resident, I reviewed resident's note and agree with documented findings and plan of care.: Yes
ED Attending Note:
I reviewed and agree with patient treatment plan by Grace Waldrop. My exam reveals 83-year-old male in no acute distress. Lungs clear. No peripheral edema. Patient stable for discharge. No signs of acute CHF or dysrhythmia. Follow-up with
cardiology.
Discharge Plan
Departure
Patient Disposition: Home (Routine Discharge)
Date of Disposition: 02/28/24
Time of Disposition: 19:06
Patient with high blood pressure during this ER visit?: Yes
Condition: Good
Covid-19: Not Applicable
Discharge Problem:
Acute dyspnea
Instructions: Shortness of Breath, Adult ED
Prescriptions:
No Action
escitalopram oxalate 10 MG tablet
20 mg PO DAILY
dofetilide 250 MCG capsule
250 mcg PO Q12H
lorazepam 0.5 MG tablet
0.5 mg PO HS
Eliquis 5 mg Tablet
5 mg PO BID Qty: 60 2RF
pantoprazole 40 mg tablet,delayed release (DR/EC)
40 mg PO DAILY Qty: 30 1RF
furosemide 20 MG tablet
20 mg PO DAILY Qty: 30 0RF
rosuvastatin 20 mg Tablet
20 mg PO DAILY
acetaminophen [Tylenol Extra Strength] 500 mg Tablet
1,000 mg PO Q6HPRN PRN (Reason: mild pain)
Visbiome 112.5 billion cell Capsule
2 cap PO HS
Vyndamax 61 mg Capsule
61 mg PO HS
Referrals:
Henri Kwon MD [Family Provider] -
Andrew Casper MD [Active] - Follow up in 1 week
Activity Restrictions/Additional Instructions:
RETURN TO THE EMERGENCY DEPARTMENT WITH ANY CHEST PAIN, SHORTNESS OF BREATH, FEVERS, PERSISTENT COUGH, PERSISTENT LIGHTHEADED/DIZZINESS, WORSENING IN CURRENT SYMPTOMS, OR ANY OTHER CONCERNS
-As discussed�you should double your furosemide/Lasix for the next 2 days. Take it easy over the next few days.
-You should follow-up with your customer services supervisor and/or back Tho for further evaluation/management of shortness of breath. It is important that you monitor your symptoms closely and return to the emergency department with any acute worsening/new
symptoms.
Interventions
Interventions:
*Risk Screen - Suicide Last Done: 02/28/24 13:55
*General Assessment Last Done: 02/28/24 13:55
*Neglect/Abuse Screening Last Done: 02/28/24 13:55
ED- Fall Risk Assessment Last Done: 02/28/24 17:33
*ED COVID-19 Vaccine History Last Done: 02/28/24 13:55
*Nursing Disposition Last Done: 02/28/24 19:11
ED- Cardiac Assessment Last Done: 02/28/24 17:33
ED- Pulmonary Assessment Last Done: 02/28/24 17:33
Discharge Date and Time
Discharge Date/Time: 02/28/24 19:21
Print Language: JORDANIAN
[2024-02-28 17:29] VITALS: BP 137/88
[2024-02-28 18:00] VITALS: BP 140/93
[2024-02-28 18:09] LABS: NT-proBNP 2660 pg/ml; Troponin I 0.038 ng/ml
[2024-02-28 19:00] VITALS: BP 147/96
== END 2024-02-28 19:21 | disposition home or self-care (01) ==
LOC: EMR 13:48
PROVIDERS: Emergency Medicine; Physician Assistant; EMERGENCY PHYSICIAN Emergency Medicine; FAMILY PHYSICIAN Family Medicine
DX: R06.09 Other forms of dyspnea (principal); R07.89 Other chest pain; R42 Dizziness and giddiness; D64.9 Anemia, unspecified; I11.0 Hypertensive heart disease with heart failure; I50.9 Heart failure, unspecified; I25.10 Atherosclerotic heart disease of native coronary artery without angina pectoris; I48.91 Unspecified atrial fibrillation; K21.9 Gastro-esophageal reflux disease without esophagitis; D50.9 Iron deficiency anemia, unspecified; Z96.653 Presence of artificial knee joint, bilateral; Z87.891 Personal history of nicotine dependence; Z79.01 Long term (current) use of anticoagulants; Z98.0 Intestinal bypass and anastomosis status; Z88.8 Allergy status to other drugs, medicaments and biological substances
CPT/HCPCS: 99284; 71046; 80053; 83880; 84484; 85025; 93005

== ENCOUNTER → 2024-09-29 09:31 | Outpatient (REF) | payer OTHER, SELFPAY | LOC: RCS 09:31 | PROVIDERS: ATTENDING PHYSICIAN Internal Medicine Cardiovascular Disease; FAMILY PHYSICIAN Family Medicine | DX: E85.82 Wild-type transthyretin-related (ATTR) amyloidosis (principal); R53.83 Other fatigue; R00.2 Palpitations; R07.89 Other chest pain; I50.22 Chronic systolic (congestive) heart failure | CPT/HCPCS: 93306; 93356 ==

== ENCOUNTER → 2024-10-03 09:12 | Outpatient (REF) | payer OTHER, SELFPAY | LOC: HWRCS 09:12 | PROVIDERS: ATTENDING PHYSICIAN Internal Medicine Cardiovascular Disease; FAMILY PHYSICIAN Family Medicine | DX: R07.89 Other chest pain (principal); I25.10 Atherosclerotic heart disease of native coronary artery without angina pectoris; Z95.5 Presence of coronary angioplasty implant and graft | CPT/HCPCS: 78452; 93017; A9500; J2785 ==